=== PATIENT | female | born 1995 | race African-American/Black ===

== ENCOUNTER 2017-03-09 21:50 | Emergency (ER) | payer OTHER, MEDICAID ==
[~2017-03-09] VITALS: Ht 162.6 cm; Wt 63.5 kg
[2017-03-09] MEDS ORDERED: NKM (22:00)
[2017-03-09] MEDS ORDERED: NAPROXEN SODIU550 M1 ORAL (22:01)
[2017-03-09] MEDS ORDERED: Norco 5mg/325mg tab PO ONE (22:15)
[2017-03-09 22:43] LABS: APPEARANCE,URINE CLEAR; KETONES,URINE NEGATIVE (NEGATIVE); LEUKOCYTE ESTERASE ,URINE NEGATIVE (NEGATIVE); NITRITE,URINE NEGATIVE (NEGATIVE); PH,URINE 8 (4.5-8.0); PROTEIN,URINE NEGATIVE (NEGATIVE); UROBILINOGEN,URINE NORMAL MG/DL (0.0-1.0)
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
[2017-03-10] MEDS ORDERED: TRAMADOL HCL50 MG ORAL (00:14)
[2017-03-10] MEDS ORDERED: IBUPROFEN600 MG ORAL (00:14)
[2017-03-10 00:54] VITALS: BP 126/88
--- NOTE | 2017-03-11 10:02 | Diagnostic Imaging Report ---
Indication: Trauma with pain Technique: Continuous helical CT scanning of the head was performed without intravenous contrast material. Axial and coronal 5 mm sections were generated. Dose: Total Dose Length Product - DLP [address] Dose Index - CTDIvol(s) 70.38 mGy. Comparison:None. Findings: The ventricular system is normal in size and configuration. There is no shift of midline structures. No abnormal extra-axial fluid collections are noted. There is no evidence of intracerebral bleeding. No other abnormal high or low density areas are noted within the brain. Impression: Normal CT scan of the head without contrast material. The above report is concordant with preliminary reading by [employer] . The CT scanner at [facility] is accredited by the [employer] and the scans are performed using protocols designed to limit radiation exposure to as low as reasonably achievable to attain images of sufficient resolution adequate for diagnostic evaluation.
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
== END 2017-03-10 01:29 | disposition home or self-care (01) ==
LOC: EMR 22:30
DX: S09.90XA Unspecified injury of head, initial encounter (principal); S13.4XXA Sprain of ligaments of cervical spine, initial encounter; S39.012A Strain of muscle, fascia and tendon of lower back, initial encounter; F41.9 Anxiety disorder, unspecified; F32.9 Major depressive disorder, single episode, unspecified; J45.909 Unspecified asthma, uncomplicated; F17.200 Nicotine dependence, unspecified, uncomplicated; R07.9 Chest pain, unspecified; V43.52XA Car driver injured in collision with other type car in traffic accident, initial encounter; Y92.410 Unspecified street and highway as the place of occurrence of the external cause
CPT/HCPCS: 70450; 71010; 72020; 72125; 81003; 81025; 99284

== ENCOUNTER 2017-03-12 14:44 | Emergency (ER) | payer OTHER, MEDICAID ==
[~2017-03-12] VITALS: Ht 160 cm; Wt 61.2 kg
[~2017-03-12 14:44] MED LIST: IBUPROFEN600 MG ORAL; NAPROXEN SODIU550 M1 ORAL; NKM; TRAMADOL HCL50 MG ORAL
[2017-03-12 15:09] VITALS: BP 139/86
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
[2017-03-12] MEDS ORDERED: TYLENOL EXTRA500 MG ORAL (15:26)
[2017-03-12 15:48] VITALS: BP 139/86
== END 2017-03-12 15:48 | disposition home or self-care (01) ==
LOC: EMR 15:13
DX: M54.2 Cervicalgia (principal); M54.9 Dorsalgia, unspecified; R53.83 Other fatigue; R11.0 Nausea
CPT/HCPCS: 99283